=== PATIENT | male | born 1950 | race Caucasian/White ===

== ENCOUNTER → 2017-06-17 | Outpatient (CLI) | payer BC, MEDICARE ==
[~2017-06-17] MED LIST: AMIO200T42 PO; ASPI-621 PO; CHOL100012 PO; DIPH1TAB PO; DOCU-131 PO; FURO-93 PO; LEVO175T5 PO; MULT-516 PO; POTA10TA5 PO; SIMV20TA3 PO; TRAM50TA2 PO; WARF2TAB PO-COUM; Zinc PO
== END | disposition home or self-care (01) ==
LOC: CFH 07:26
PROVIDERS: ATTEND Physician Assistant Medical
DX: I08.1 Rheumatic disorders of both mitral and tricuspid valves (principal); Z95.3 Presence of xenogenic heart valve; Z87.891 Personal history of nicotine dependence; Z85.47 Personal history of malignant neoplasm of testis
CPT/HCPCS: 93306